=== PATIENT | female | born 1930 | race Caucasian/White ===

== ENCOUNTER → 2018-01-31 | Outpatient (CLI) | payer OTHER, MEDICAID ==
[~2018-01-31] MED LIST: ACYCLOVIR 400400 M1 PO; ADULT TUSS100 MG/5 M; ALDACTONE25 MG PO; AMBIEN 10 MG TA10 MG PO; AMBIEN 5 MG TABL5 M1; ANTACID ANTI-G355 ML PO; ANTIVERT12.5 MG PO; APAP500; APAP500 PO; ATIVAN0.5 M1 PO; ATIVAN0.5 MG; ATIVAN0.5 MG PO; AVINZA45 MG PO; AZULFIDINE500 M1 PO; B12INJ PO; BACITRACIN 500U30 G1 TOP; BENGAY GREASELE57 GM TP; BENGAY113 GM TP; CARAFATE 1 GM TA1 G1 GT; CELEBREX 200 M200 MG PO; CELEXA 20 MG TA20 M1; CEPACOL SORE T1 EAC7; CEPACOL SORE T1 EAC7 PO; CHONDROITIN SU1 EACH PO; CLARITIN10 MG PO; COMPAZINE10 M1; COMPAZINE10 M2 PO; COMPAZINE10 MG PO; COZAAR 50 MG TA50 M1; COZAAR 50 MG TA50 M2 PO; CRANBERRY500 M1 PO; CRANBERRY500 M3 PO; DIOVAN40 MG PO; DOXYCYCLINE 10100 M1 PO; ESTRACE VAGINAL CREA; ESTRACE1 TUBE VAG; ESTRADIOL 1 MG T1 M1 PO; FISH OIL 1,001000 M2 PO; FLOMAX0.4 MG PO; FOLIC ACID 1 MG1 MG; FOLIC ACID1 MG PO; FOSAMAX 70 MG T70 M1; FOSAMAX 70 MG T70 MG PO; FOSAMAX40 MG PO; FUROSEMIDE; FUROSEMIDE 20 M20 M1; FUROSEMIDE 40 M40 M1; FUROSEMIDE 40 M40 M1 PO; GABAPENTIN 100100 MG PO; GABAPENTIN100 MG PO; GABAPENTIN250 MG/5 M PO; GLUCOSAMINE &1 EAC1; HUMIRA10 MG/0.2 SQ; HUMIRA40 MG/0.1 SQ; HUMIRA40 MG/0.1 SUBQ; HYDROXYCHLOROQ200 M1 PO; IMODIUM A-D PO; K-DUR 20 MEQ T20 MEQ PO; K-DUR10 ME1; K-TAB ER20 MEQ PO; KEFLEX500 MG PO; LASIX 20 MG TAB20 MG PO; LASIX 40 MG TAB40 M2 PO; LEVAQUIN 500 M500 M2 PO; LEVAQUIN 750 M750 MG PO; LEXAPRO 10 MG T10 M1 PO; LEXAPRO 10 MG T10 M2 PO; LIDODERM 5%1 PATCH; LIPITOR 20 MG T20 M1 PO; LIPITOR20 MG; LIPITOR40 MG PO; LOPERAMIDE 2 MG2 M1 PO; LORTABELXR PO; MACROBID 100 M100 M1 PO; MAPAP500 M1 PO; MECLIZINE HCL12.5 MG; MELATONIN3 MG; METHOTREXATE 22.5 M1; METHOTREXATE 22.5 M1 PO; METHOTREXATE 22.5 MG; METHOTREXATE 22.5 MG GT; MILK OF MA2400 MG/10 PO; MIRALAX17 GM PO; MIRALAX255 GM; MOBIC15 MG; MOM; MORPHINE; MORPHINE SULFAT15 M1; MORPHINE SULFAT15 MG PO; MS CONTIN 30 MG30 M1 GT; MS CONTIN 30 MG30 M1 PO; MS CONTIN 60 MG60 M1 PO; MUCINEX TA600 MG/TA2 PO; MUCINEX600 MG; MUCINEX600 MG PO; MYAMBUTOL 400400 M1; MYLANTA PO; NEXIUM40 MG PO; ONE DAILY MULT1 EAC2; OXYCODONE HCL 55 MG PO; OXYCONTIN10 M1 PO; OYSTER SHELL 51 EACH PO; OYSTER SHELL C1 EA12; OYSTER SHELL C1 EAC4 PO; PREDNISONE; PREDNISONE 10 M10 M1; PREDNISONE 10 M10 M1 PO; PREDNISONE 5 MG5 M1 PO; PREDNISONE50 MG PO; PRILOSEC40 MG PO; REMERON15 M1; REMERON15 MG PO; ROBAFEN100 MG/5 M PO; ROXICODONE15 M1; ROXICODONE15 M1 PO; ROXICODONE15 MG PO; SANTYL OINTMENT30 G1; SENEXON-S TABL1 EACH PO; SENNA; SENNA PLUS; SENNA PLUS TAB1 EACH PO; SENOKOT-S1 TA1 PO; SILTUSSIN DM C118 ML PO; SIMETHICON CHEW80 MG PO; SULFASALAZINE500 M5; SULFASALAZINE500 M5 PO; THERA M PLUS T1 EACH PO; THEREMS-M1 EACH PO; UNICOMPLEX M TA1 TA1 PO; VISINE15 ML; VISINE15 ML INTRAOCULR; VITAMIN B-12500 MCG PO; VITAMINC500; VITAMINC500 PO
== END ==
LOC: M.RAD 13:25
DX: M85.89 Other specified disorders of bone density and structure, multiple sites (principal); Z78.0 Asymptomatic menopausal state

== ENCOUNTER → 2018-07-19 | Day surgery (SDC) | payer OTHER, MEDICAID ==
[~2018-07-19] MED LIST changes: +OMEPRAZOLE 20 M20 M1 PO; +ONDANSETRON HCL4 M2 PO; +ZANTAC 150MG T150 MG PO
[2018-07-19 10:37] LABS: HEMATOCRIT 35.5 % (37.0-47.0); HEMOGLOBIN 11.8 gm/dL (12.0-15.0); MCH 34.2 pg (26.0-34.0); MCHC 33.2 g/dL (28.0-37.0); RBC 3.44 mil/uL (4.20-5.00); RDW-CV 12.8 % (10.5-14.5); WBC 5.7 thou/uL (4.0-11.0)
[2018-07-19 10:50] LABS: ALBUMIN 3.9 g/dL (3.4-5.0); CALCIUM 9.5 mg/dL (8.5-10.1); POTASSIUM 4.3 mmol/L (3.5-5.1); TOTAL BILIRUBIN 0.3 mg/dL (<0.1-1.0)
--- NOTE | 2018-07-19 18:25 | EKG ---
[place] [address] ELECTROCARDIOGRAM REPORT Name: POWERSVLAD Room: [facility]#: [id number] Admission: 07/19/18 Attend Phys: Grady Capone DO Discharge: Date of : 34 Report #: [id number] THIS REPORT FOR: //name// [facility] Test Date: 2018-07-19 Test Time: 10:46:35 Pat Name: VLAD POWERS Department: Room: Gender: Elevator Repairer: : 1930 Requested By: Grady Capone Order Number: [id number] Enrique MD: Mitchell Abrams Measurements Intervals [place] Rate: 63 P: 38 TN: 146 QRS: 3 QRSD: 89 T: 4 QT: 406 QTc: 416 Interpretive Statements Sinus rhythm Abnormal R-wave progression, early transition Compared to ECG 10/03/2016 12:22:59 No significant changes Electronically Signed On 07-19-2018 18:25:11 CDT by Mitchell Abrams [email or web address] <ELECTRONICALLY SIGNED> By: Mitchell Abrams MD, [facility] 07/19/18 1825 1046 45 Mitchell Abrams MD, FAC /EPI
== END | disposition home or self-care (01) ==
LOC: M.SUR 08:28
PROVIDERS: Internal Medicine Gastroenterology
DX: K22.0 Achalasia of cardia (principal); K20.9 Esophagitis, unspecified; K44.9 Diaphragmatic hernia without obstruction or gangrene; Q39.9 Congenital malformation of esophagus, unspecified; M06.9 Rheumatoid arthritis, unspecified; G89.29 Other chronic pain; Z85.820 Personal history of malignant melanoma of skin; Z90.710 Acquired absence of both cervix and uterus; Z79.891 Long term (current) use of opiate analgesic; Z79.899 Other long term (current) drug therapy; Z88.2 Allergy status to sulfonamides; Z87.01 Personal history of pneumonia (recurrent); Z87.440 Personal history of urinary (tract) infections; Z98.890 Other specified postprocedural states

== ENCOUNTER → 2019-01-23 | Day surgery (SDC) | payer OTHER, MEDICAID ==
[~2019-01-23] MED LIST changes: +VITAMIN C500 M2 PO; +VOLTAREN GEL 1100 G1 TOP
--- NOTE | ~2019-01-23 | PROC ---
[address] [place] [address] PROCEDURE REPORT Name: VLAD POWERS Room: [facility]#: [id number] Admission: 01/23/19 Attend Phys: Grady Capone DO Discharge: Date of : 34 Report #: [id number] THIS REPORT FOR: //name// For Gi report, please see the Provation report in Perceptive 7 content. By: 1456Medical Records Staff [facility] /JOSUE
[2019-01-23 10:16] LABS: HEMATOCRIT 37.3 % (37.0-47.0); HEMOGLOBIN 12.3 gm/dL (12.0-15.0); MCH 33.4 pg (26.0-34.0); MCV 101.2 fL (80.0-100.0); MPV 9.2 fl. (7.2-11.1); RBC 3.68 mil/uL (4.20-5.00); RDW-CV 13.5 % (10.5-14.5); WBC 5.5 thou/uL (4.0-11.0)
[2019-01-23 10:27] LABS: CALCIUM 9.8 mg/dL (8.5-10.1)
[2019-01-23 10:32] LABS: ALBUMIN 4.1 g/dL (3.4-5.0); TOTAL BILIRUBIN 0.4 mg/dL (<0.1-1.0); TOTAL PROTEIN 7.2 g/dL (6.4-8.2)
== END | disposition home or self-care (01) ==
LOC: M.SUR 09:28
PROVIDERS: Internal Medicine Gastroenterology
DX: R13.14 Dysphagia, pharyngoesophageal phase (principal); K22.0 Achalasia of cardia; K22.8 Other specified diseases of esophagus; K44.9 Diaphragmatic hernia without obstruction or gangrene; K21.9 Gastro-esophageal reflux disease without esophagitis; E78.00 Pure hypercholesterolemia, unspecified; F41.9 Anxiety disorder, unspecified; F32.9 Major depressive disorder, single episode, unspecified; M81.0 Age-related osteoporosis without current pathological fracture; G62.9 Polyneuropathy, unspecified; Z88.2 Allergy status to sulfonamides; Z79.899 Other long term (current) drug therapy; Z98.890 Other specified postprocedural states

== ENCOUNTER → 2019-12-03 | Day surgery (SDC) | payer OTHER, MEDICAID ==
[2019-12-03 10:00] LABS: ABSOLUTE EOSINOPHILS 0.1 thou/uL (0.0-0.7); ABSOLUTE MONOCYTES 0.4 thou/uL (0.0-1.2); ABSOLUTE NEUTROPHILS 3.2 thou/uL (1.6-8.1); BASOPHILS 0.8 %; EOSINOPHILS 2.1 %; HEMATOCRIT 33.8 % (37.0-47.0); HEMOGLOBIN 11.4 gm/dL (12.0-15.0); LYMPHOCYTES 20.5 %; MCH 34.5 pg (26.0-34.0); MCHC 33.6 g/dL (28.0-37.0); MCV 102.5 fL (80.0-100.0); MONOCYTES 8.9 %; MPV 9.7 fl. (7.2-11.1); NUCLEATED RBCS 0 /100WBC; PLATELET COUNT* 151 thou/uL (150-400); POLYS 67.7 %; WBC 4.7 thou/uL (4.0-11.0)
[2019-12-03 10:30] LABS: CALCIUM 8.6 mg/dL (8.5-10.1); POTASSIUM 4.4 mmol/L (3.5-5.1)
--- NOTE | 2019-12-03 11:41 | EKG ---
[place] [address] ELECTROCARDIOGRAM REPORT Name: VLAD POWERS Room: [facility]#: [id number] Admission: 12/03/19 Attend Phys: Grady Capone, Discharge: Date of : 34 Date of Service: 12/03/19 0929 Report #: [id number] THIS REPORT FOR: //name// [facility] Test Date: 2019-12-03 Test Time: 09:29:56 Pat Name: VLAD POWERS Department: Room: Gender: F Crm Administrator: : [id number] Requested By: Grady Capone Order Number: [id number] Enrique MD: Mitchell Abrams Measurements Intervals [place] Rate: 58 P: 50 WI: 139 QRS: 9 QRSD: 94 T: 28 QT: 447 QTc: 440 Interpretive Statements Sinus rhythm Compared to ECG 07/19/2018 10:46:35 No significant changes Electronically Signed On 12-03-2019 11:40:51 CDT by Mitchell Abrams [email or web address] <ELECTRONICALLY SIGNED> By: Mitchell Abrams MD, [facility] 12/03/19 1140 0929 Mitchell Abrams MD, [facility] /EPI
== END | disposition home or self-care (01) ==
LOC: M.SUR 09:04 → EDSTATUS 13:21 → M.SUR 13:26
PROVIDERS: ATTEND Internal Medicine Gastroenterology
DX: K22.0 Achalasia of cardia (principal); R13.10 Dysphagia, unspecified; K44.9 Diaphragmatic hernia without obstruction or gangrene; Q39.9 Congenital malformation of esophagus, unspecified; Z79.899 Other long term (current) drug therapy; Z88.2 Allergy status to sulfonamides; Z88.8 Allergy status to other drugs, medicaments and biological substances; Z98.890 Other specified postprocedural states

== ENCOUNTER 2020-02-07 11:38 | Inpatient (IN) | payer OTHER, MEDICAID ==
[~2020-02-07] VITALS: Ht 162.6 cm; Wt 57.0 kg
[~2020-02-07 11:38] MED LIST changes: -ALDACTONE25 MG PO; +SPIRONOLACTONE25 M1 PO
[2020-02-07 11:46] VITALS: BP 148/96
[2020-02-07] MEDS ORDERED: FAMOTIDINE 20 M20 MG PO (12:01)
[2020-02-07] MEDS ORDERED: MS CONTIN60 MG PO (12:04)
[2020-02-07] MEDS ORDERED: DECADRON6 MG PO (12:07)
[2020-02-07 12:15] LABS: BE 7.2 mmol/L (-2 to +3); PCO2 39.2 mmHg (35.0-45.0); pH 7.511 (7.340-7.450)
[2020-02-07 12:16] LABS: PO2 53.3 mmHg (75.0-100.0)
[2020-02-07 12:26] LABS: HEMATOCRIT 38.5 % (37.0-47.0); HEMOGLOBIN 12.6 gm/dL (12.0-15.0); MCHC 32.7 g/dL (28.0-37.0); MCV 100.9 fL (80.0-100.0); MPV 9.9 fl. (7.2-11.1); NUCLEATED RBCS 0 /100WBC; PLATELET COUNT* 145 thou/uL (150-400); RBC 3.81 mil/uL (4.20-5.00); RDW-CV 13.4 % (10.5-14.5); WBC 8.6 thou/uL (4.0-11.0)
[2020-02-07 12:39] LABS: APTT 27.2 Seconds (25.0-31.3); PROTIME 10.5 Seconds (9.20-11.50)
[2020-02-07 12:46] LABS: INFLUENZA A ANTIGEN Negative (Negative); INFLUENZA B ANTIGEN Negative (Negative)
[2020-02-07 12:53] LABS: ABSOLUTE LYMPHOCYTES 0.7 thou/uL (0.8-5.3); ABSOLUTE MONOCYTES 0.3 thou/uL (0.0-1.2); ABSOLUTE NEUTROPHILS 7.6 thou/uL (1.6-8.1); PLATELET ESTIMATE ADEQUATE
[2020-02-07 13:01] LABS: CALCIUM 9.8 mg/dL (8.5-10.1); CREATININE 1.2 mg/dL (0.6-1.3); POTASSIUM 3.9 mmol/L (3.5-5.1)
[2020-02-07 13:12] LABS: ALBUMIN 3.4 g/dL (3.4-5.0); TOTAL BILIRUBIN 0.5 mg/dL (<0.1-1.0)
[2020-02-07 15:16] LABS: URINE BILIRUBIN NEGATIVE (Negative); URINE BLOOD NEGATIVE (Negative); URINE CLARITY CLEAR; URINE COLOR YELLOW; URINE GLUCOSE-RANDOM NEGATIVE (Negative); URINE KETONES NEGATIVE (Negative); URINE LEUKOCYTES-REFLEX NEGATIVE (Negative); URINE NITRITE-REFLEX NEGATIVE (Negative); URINE PROTEIN NEGATIVE (Negative); URINE UROBILINOGEN 0.2 E.U./dl (0.2-1.0)
--- NOTE | 2020-02-07 17:46 | EKG ---
[place] [address] ELECTROCARDIOGRAM REPORT Name: VLAD POWERS Room: [place] [address] ADM IN ..#: [id number] Admission: 02/07/20 Attend Phys: Tevin Mercedes, Discharge: Date of : 34 Date of Service: 02/07/20 1157 Report #: [id number] THIS REPORT FOR: //name// [facility] ED Test Date: 2020-02-07 Test Time: 11:57:06 Pat Name: VLAD POWERS Department: Room: [facility] Gender: F Mutual Fund Sales Agent: : 1930 Requested By: Ciaran Khan Order Number: [id number] MD: Mitchell Abrams Measurements Intervals [place] Rate: 74 P: 0 SD: 55 QRS: 3 QRSD: 131 T: 19 QT: 400 QTc: 444 Interpretive Statements Sinus rhythm Artifact in lead(s) I,aVF,V1,V2,V3,V4,V5,V6 Compared to ECG 12/03/2019 09:29:56 Artifact noted Electronically Signed On 02-07-2020 17:45:51 CDT by Mitchell Abrams [email or web address] <ELECTRONICALLY SIGNED> By: Mitchell Abrams MD, FACC 02/07/20 1745 1157 1157 Mitchell Abrams MD, FACC /EPI
[2020-02-07 18:08] VITALS: BP 121/58
[2020-02-07 18:10] VITALS: BP 109/41
--- NOTE | 2020-02-07 19:01 | NUR ---
PT ADMITTED TO ROOM 222 AT APPROX 1810, PT AOX4, NO C/O PAIN OR SHORTNESS OF BREATH. PT SATTING UPPER 80'S ON 4L, SWITCHED TO HIGH FLOW CANULA AND BUMPED UP TO 8L, SAT 90%. PT BOTTOM A LITTLE RED, MADE A Q2T, NO OPEN SKIN. FLUIDS AND REMDESIVIR RUNNING, VS CHARTED, MEDS PER MAR, HOURLY ROUNDING OBSERVED, FALL PRECAUTIONS IN PLACE, CALL LIGHT W/IN REACH, PT ORIENTED TO ROOM AND CALL LIGHT. PT STATES SHE GETS UP W/ WALKER AT [facility], WHERE SHE'S FROM, BUT I DID NOT GET PT UP THIS SHIFT.
[2020-02-07 20:00] VITALS: BP 125/59
[2020-02-08] VITALS (7 sets, daily range): BP systolic 99–123; BP diastolic 38–68
[2020-02-08 05:47] LABS: ABSOLUTE LYMPHOCYTES 0.3 thou/uL (0.8-5.3); ABSOLUTE MONOCYTES 0.1 thou/uL (0.0-1.2); ABSOLUTE NEUTROPHILS 5.3 thou/uL (1.6-8.1); BASOPHILS 0.1 %; HEMATOCRIT 36.5 % (37.0-47.0); HEMOGLOBIN 11.8 gm/dL (12.0-15.0); LYMPHOCYTES 4.7 %; MCH 32.8 pg (26.0-34.0); MCHC 32.3 g/dL (28.0-37.0); MCV 101.7 fL (80.0-100.0); MONOCYTES 1.8 %; MPV 9.9 fl. (7.2-11.1); NUCLEATED RBCS 0 /100WBC; PLATELET COUNT* 127 thou/uL (150-400); POLYS 93.4 %; RBC 3.59 mil/uL (4.20-5.00); RDW-CV 13.1 % (10.5-14.5); WBC 5.7 thou/uL (4.0-11.0)
[2020-02-08 05:55] LABS: CALCIUM 9.1 mg/dL (8.5-10.1); POTASSIUM 3.4 mmol/L (3.5-5.1)
--- NOTE | 2020-02-08 18:54 | NUR ---
ASSUMED PT CARE AT 729, PT AOX4 BUT FORGETFUL, NO C/O PAIN BUT SATTING 80'S ON 6L, ENDED UP HAVING TO PUT PT ON 15L NONREBREATHER TO ACHIEVE 90% SAT. RT WORKED W/ PT TODAY, NOTIFIED ABOUT INCREASED OXYGEN NEEDS. PT BEING TURNED Q2H. CONVALESCENT PLASMA ORDERED FOR PT AND GIVEN TODAY, PT TOLERATED WELL. PT GOAL IS TO KEEP SATS ABOVE 90% AND REMAIN FREE FROM SKIN BREAKDOWN. PT CONTINUES TO BE IN ISO FOR COVID. AM ASSESSMENT CHARTED, MEDS PER MAR, HOURLY ROUNDING OBSERVED, FALL PRECAUTIONS IN PLACE, CALL LIGHT W/IN REACH.
[2020-02-09 00:26] VITALS: BP 118/53
[2020-02-09 04:00] VITALS: BP 124/52
[2020-02-09 05:29] LABS: ABSOLUTE LYMPHOCYTES 0.3 thou/uL (0.8-5.3); ABSOLUTE MONOCYTES 0.2 thou/uL (0.0-1.2); BASOPHILS 0.1 %; HEMOGLOBIN 11.1 gm/dL (12.0-15.0); LYMPHOCYTES 4.3 %; MCH 33.1 pg (26.0-34.0); MCHC 32.5 g/dL (28.0-37.0); MCV 101.7 fL (80.0-100.0); MONOCYTES 2.7 %; MPV 9.8 fl. (7.2-11.1); NUCLEATED RBCS 0 /100WBC; PLATELET COUNT* 137 thou/uL (150-400); POLYS 92.9 %; RBC 3.34 mil/uL (4.20-5.00); RDW-CV 13.3 % (10.5-14.5); WBC 7.6 thou/uL (4.0-11.0)
[2020-02-09 06:01] LABS: ALBUMIN 2.3 g/dL (3.4-5.0); CALCIUM 7.8 mg/dL (8.5-10.1); CREATININE 0.9 mg/dL (0.6-1.3); POTASSIUM 3.6 mmol/L (3.5-5.1); TOTAL BILIRUBIN 0.3 mg/dL (<0.1-1.0); TOTAL PROTEIN 6.2 g/dL (6.4-8.2)
[2020-02-09 08:00] VITALS: BP 100/37
[2020-02-09 12:00] VITALS: BP 108/65
[2020-02-09 17:28] VITALS: BP 103/46; BP 112/42
--- NOTE | 2020-02-09 19:32 | NUR ---
ASSUMED PT CARE AT 0730, PT AOX4 BUT FORGETFUL, NO C/O PAIN OR SHORTNESS OF BREATH. PT HAD TROUBLES KEEPING OXYGEN SATS UP TODAY, PT SATTING 87-90% ON 15L NONREBREATHER, NOTIFIED AND ORDERS RECEIVED FOR IV LASIX. PT DID BETTER DURING DAY BUT AROUND DINNER, PT WAS BACK TO 80'S, DR NOTIFIED AND RT CALLED, PT DOESN'T TOLERATE HEATED HIGH FLOW SO RT PUT 15L HIGH FLOW W/ 15L NONREBREATHER ON TOP OF IT, SAT 92-95%, STILL DOESN'T C/O SHORTNESS OF BREATH. ANOTHER DOSE OF IV LASIX ORDERED AND FLUIDS DC'D. PT GOT CONVOLESCENT PLASMA TODAY, TOLERATED WELL. PT GOAL IS TO KEEP SATS ABOVE 90% AND REMAIN FREE FROM SKIN BREAKDOWN. PT BEING TURNED Q2H, AM ASSESSMENT CHARTED, MEDS PER MAR, HOURLY ROUNDING OBSERVED, FALL PRECAUTIONS IN PLACE, CALL LIGHT W/IN REACH, PT IN ISO FOR COVID.
[2020-02-09 20:00] VITALS: BP 98/38
[2020-02-10] VITALS: BP 125/48
[2020-02-10 04:00] VITALS: BP 129/59; BP 137/66
[2020-02-10 05:19] LABS: ABSOLUTE LYMPHOCYTES 0.2 thou/uL (0.8-5.3); ABSOLUTE MONOCYTES 0.4 thou/uL (0.0-1.2); ABSOLUTE NEUTROPHILS 7.8 thou/uL (1.6-8.1); HEMATOCRIT 34.6 % (37.0-47.0); HEMOGLOBIN 11.2 gm/dL (12.0-15.0); LYMPHOCYTES 2.8 %; MCH 32.7 pg (26.0-34.0); MCHC 32.4 g/dL (28.0-37.0); MCV 100.7 fL (80.0-100.0); MONOCYTES 4.2 %; MPV 9.9 fl. (7.2-11.1); NUCLEATED RBCS 0 /100WBC; PLATELET COUNT* 154 thou/uL (150-400); RBC 3.43 mil/uL (4.20-5.00); RDW-CV 13.4 % (10.5-14.5); WBC 8.4 thou/uL (4.0-11.0)
[2020-02-10 05:59] LABS: PREALBUMIN 15.6 mg/dL (18.0-35.7)
[2020-02-10 06:31] LABS: ALBUMIN 2.4 g/dL (3.4-5.0); CALCIUM 8.1 mg/dL (8.5-10.1); POTASSIUM 3.3 mmol/L (3.5-5.1); TOTAL BILIRUBIN 0.3 mg/dL (<0.1-1.0); TOTAL PROTEIN 6.4 g/dL (6.4-8.2)
--- NOTE | 2020-02-10 07:20 | NUR ---
CHANGE IN SHIFT REPORT GIVEN PATIENT SEEN AT BEDSIDE, IN BED ASLEEP ASSUMED PATIENT CARE
[2020-02-10 08:00] VITALS: BP 112/44
--- NOTE | 2020-02-10 14:25 | NUR ---
CM CONTACTD PT'S SON TO GET HIS ASSISTANCE IN COMPLETING THE CM ASSESSMENT. PT'S SON CARLIE INFORMS THAT THE PT RESIDES AT [facility]. PT USES A WALKER FOR MOBILITY AND IS ABLE TO WALK HERSELF TO MEALS WITH REMINDERS. PLAN FOR PT TO RETURN TO [facility] AT D/C. CM SPOKE TO [facility] WITH [facility] ADMISSIONS AND SHE INFORMS THAT THE [facility] WILL ACCEPT THE PT AT D/C. NO RAPID COVID NEEDED AT D/C THE PT WILL RETURN TO THE COVID POSTITIVE UNIT. CM FAXED [facility] UPDATED CLINICAL INFO ON THE PT. CM WILL REMAIN AVAILABLE TO ASSIST AND FOLLOW NEEDED.
[2020-02-10 14:35] VITALS: BP 99/57
[2020-02-10 17:20] LABS: CALCIUM 8.6 mg/dL (8.5-10.1); CREATININE 1.2 mg/dL (0.6-1.3); POTASSIUM 3.4 mmol/L (3.5-5.1)
[2020-02-10 18:40] VITALS: BP 113/60
[2020-02-10 20:00] VITALS: BP 139/77
[2020-02-11] VITALS: BP 138/60
[2020-02-11 04:00] VITALS: BP 124/48
[2020-02-11 07:10] LABS: MCH 33.4 pg (26.0-34.0); MPV 9.6 fl. (7.2-11.1); NUCLEATED RBCS 0 /100WBC; WBC 7.9 thou/uL (4.0-11.0)
[2020-02-11 07:13] LABS: HEMATOCRIT 37.8 % (37.0-47.0); HEMOGLOBIN 12.1 gm/dL (12.0-15.0); MCHC 31.9 g/dL (28.0-37.0); MCV 104.9 fL (80.0-100.0); PLATELET COUNT* 114 thou/uL (150-400); RDW-CV 13.6 % (10.5-14.5)
[2020-02-11 07:24] LABS: ALBUMIN 2.4 g/dL (3.4-5.0); CALCIUM 8.6 mg/dL (8.5-10.1); MAGNESIUM 2.2 mg/dL (1.8-2.4); POTASSIUM 3.6 mmol/L (3.5-5.1); TOTAL BILIRUBIN 0.6 mg/dL (<0.1-1.0); TOTAL PROTEIN 6.5 g/dL (6.4-8.2)
[2020-02-11 07:57] LABS: PREALBUMIN 15.6 mg/dL (18.0-35.7)
[2020-02-11 08:00] VITALS: BP 119/56
[2020-02-11 08:32] LABS: ABSOLUTE LYMPHOCYTES 0.3 thou/uL (0.8-5.3); ABSOLUTE NEUTROPHILS 7.6 thou/uL (1.6-8.1); PLATELET ESTIMATE ADEQUATE
--- NOTE | 2020-02-11 12:36 | NUR ---
PRIMETIME ROUNDS: PT IS RED STATUS D/T CONTINOUS BIPAP NEEDS.
[2020-02-11 12:38] VITALS: BP 146/53
--- NOTE | 2020-02-11 15:47 | NUR ---
RIGHT BASILIC VESSEL ACCESED FOR 5 HUNGARIAN TRIPLE LUMEN PICC. LINE PRE-TRIMMED TO 37 CM AND ADVANCED TO THE ZERO JHON WITH NO RESISTANCE MET. UPPERA ARM CIRCUMFERENCE ABOVE INSERTION SITE= 9". SHERLOCK MAGNET AND 3CG CONFIRMATION OF TIP TERMINATION AT THE CAVOATRIAL JUNCTION APPRECIATED. GUIDEWIRE REMOVED, LINE FLUSHED AND ISNERTION SITE DRESED. REPORT GIVEN TO RENZO OVALLE.
[2020-02-11 15:56] LABS: BE 2.2 mmol/L (-2 to +3); PCO2 37.5 mmHg (35.0-45.0); PO2 62.5 mmHg (75.0-100.0); pH 7.458 (7.340-7.450)
[2020-02-11 16:00] VITALS: BP 120/53
--- NOTE | 2020-02-11 19:38 | NUR ---
PT O2 SAT 83% ON BIPAP AT INITIAL ASSESSMENT.O2 SAT IMPROVED T/O DAY. 93% AT 1600.SR ON MONITOR. PICC X3 PLACED TODAY IN REED. PT NPO AT THIS TIME,UNABLE TO TOLERATE ANY AMOUNT OF TIME OFF BIPAP. WCTM
[2020-02-11 20:00] VITALS: BP 127/77
[2020-02-12 00:49] VITALS: BP 118/59
[2020-02-12 04:36] VITALS: BP 138/64
[2020-02-12 08:00] VITALS: BP 148/78
--- NOTE | 2020-02-12 12:09 | NUR ---
Covid positive. On bipap, high L of o2. Plan back to LTC at dc, will not need a repeat covid test, Pt will admit to their covid unit. Anticipate dc in a few days.
[2020-02-12 12:16] VITALS: BP 109/45
[2020-02-12 15:16] LABS: ABSOLUTE BASOPHILS 0.1 thou/uL (0.0-0.2); ABSOLUTE LYMPHOCYTES 0.1 thou/uL (0.8-5.3); ABSOLUTE MONOCYTES 0.3 thou/uL (0.0-1.2); ABSOLUTE NEUTROPHILS 8.9 thou/uL (1.6-8.1); BASOPHILS 0.6 %; HEMATOCRIT 34.6 % (37.0-47.0); HEMOGLOBIN 11.5 gm/dL (12.0-15.0); LYMPHOCYTES 1.4 %; MCHC 33.2 g/dL (28.0-37.0); MPV 9.1 fl. (7.2-11.1); NUCLEATED RBCS 0 /100WBC; PLATELET COUNT* 158 thou/uL (150-400); RBC 3.48 mil/uL (4.20-5.00); RDW-CV 13.3 % (10.5-14.5); WBC 9.4 thou/uL (4.0-11.0)
[2020-02-12 15:20] LABS: MCV 99.5 fL (80.0-100.0)
[2020-02-12 16:00] VITALS: BP 121/52
[2020-02-12 16:18] LABS: CALCIUM 8.2 mg/dL (8.5-10.1); CREATININE 0.9 mg/dL (0.6-1.3); MAGNESIUM 2.5 mg/dL (1.8-2.4); POTASSIUM 3.7 mmol/L (3.5-5.1)
[2020-02-12 21:50] VITALS: BP 129/52
[2020-02-13] VITALS: BP 137/59
[2020-02-13 04:00] VITALS: BP 130/60
[2020-02-13 06:08] LABS: ABSOLUTE LYMPHOCYTES 0.2 thou/uL (0.8-5.3); ABSOLUTE MONOCYTES 0.4 thou/uL (0.0-1.2); ABSOLUTE NEUTROPHILS 9.3 thou/uL (1.6-8.1); HEMATOCRIT 33.5 % (37.0-47.0); LYMPHOCYTES 2.1 %; MCHC 32.7 g/dL (28.0-37.0); MCV 100.8 fL (80.0-100.0); MONOCYTES 4.1 %; MPV 10.3 fl. (7.2-11.1); NUCLEATED RBCS 0 /100WBC; PLATELET COUNT* 139 thou/uL (150-400); POLYS 93.8 %; RBC 3.32 mil/uL (4.20-5.00); RDW-CV 13.3 % (10.5-14.5); WBC 9.9 thou/uL (4.0-11.0)
[2020-02-13 06:27] LABS: ALBUMIN 2.1 g/dL (3.4-5.0); CALCIUM 8.4 mg/dL (8.5-10.1); CREATININE 0.9 mg/dL (0.6-1.3); POTASSIUM 3.5 mmol/L (3.5-5.1); TOTAL BILIRUBIN 0.4 mg/dL (<0.1-1.0); TOTAL PROTEIN 5.7 g/dL (6.4-8.2)
--- NOTE | 2020-02-13 07:14 | NUR ---
ASSUMED PT'S CARE @ 1900. PT ALERT AND ORIENTED. VSS ON BIPAP. COVID +. MEDS GIVEN CRUSHED IN APPLESAUCE. Q2 TURN. OCCASSIONAL MOUTH CARE. OFFERED ENSURE AND WATER INTERVALLY. JIMENEZ FOR VOIDING. ISOLATION PRECAUTION IN PLACE. WILL CONTINUE TO MONITOR.
[2020-02-13 07:30] VITALS: BP 121/56
--- NOTE | 2020-02-13 11:21 | NUR ---
Covid positive. Bipap dependent at this time.
[2020-02-13 12:00] VITALS: BP 116/70
[2020-02-13 13:57] VITALS: BP 116/78
[2020-02-13 18:40] VITALS: BP 136/49
[2020-02-14 00:24] VITALS: BP 141/45
--- NOTE | 2020-02-14 03:08 | NUR ---
ASSUMED CARE OF PT AT 1900. PT IS ALERT BUT CANNOT TELL ME WHERE SHE IS OR THE MONTH. VSS. ARLENE. NO COMPLAINTS OF PAIN. PT REMAINS ON HIGH FLOW NASAL CANNULA AT 45 LITERS OF O2. PT SPO2 REMAINS ABOVE 90. PT IS IN SINUS RYTHM ON THE TELEMETRY. PT IS RESTING COMFORTABLY IN BED. RESPIRATIONS ARE EVEN AND NONLABORED. WILL CONTINUE TO MONITOR PT.
[2020-02-14 04:39] VITALS: BP 132/79
[2020-02-14 06:15] LABS: ABSOLUTE LYMPHOCYTES 0.2 thou/uL (0.8-5.3); ABSOLUTE MONOCYTES 0.4 thou/uL (0.0-1.2); ABSOLUTE NEUTROPHILS 10.8 thou/uL (1.6-8.1); BASOPHILS 0.4 %; HEMATOCRIT 34.3 % (37.0-47.0); HEMOGLOBIN 11.1 gm/dL (12.0-15.0); LYMPHOCYTES 2.2 %; MCH 32.5 pg (26.0-34.0); MCHC 32.5 g/dL (28.0-37.0); MONOCYTES 3.5 %; MPV 10.4 fl. (7.2-11.1); NUCLEATED RBCS 0 /100WBC; PLATELET COUNT* 159 thou/uL (150-400); POLYS 93.9 %; RBC 3.43 mil/uL (4.20-5.00); RDW-CV 13.4 % (10.5-14.5); WBC 11.5 thou/uL (4.0-11.0)
[2020-02-14 06:26] LABS: PREALBUMIN 14.9 mg/dL (18.0-35.7)
[2020-02-14 06:30] LABS: ALBUMIN 1.9 g/dL (3.4-5.0); CALCIUM 8.1 mg/dL (8.5-10.1); CREATININE 0.7 mg/dL (0.6-1.3); TOTAL BILIRUBIN 0.5 mg/dL (<0.1-1.0); TOTAL PROTEIN 5.4 g/dL (6.4-8.2)
[2020-02-14 09:48] VITALS: BP 141/60
--- NOTE | 2020-02-14 10:50 | NUR ---
ASSUMED CARE OF PT THIS AM AROUND 714- TRANSPORT NURSE IN PLACE ORDERED, TRACING SR- UPON ASSESSMENT PT NOTED TO BE RESTING IN BED, HEATED LYNETTE FLOW IN PLACE AT 45L, O2 SAT 88-90%- DYSPNEA NOTED ON EXERTION- VSS- ABD SOFT/ROUND/NON-TENDER, BS X4 QUADS- LAST BM UNKNOWN, SCHEDULED STOOL SOFTNER GIVEN THIS AM PRESCRIBED- RUE TRIPLE LUMED PICC NOTED C/D/I- SET UP ASSIST REQURED WITH MEALS, POOR PO INTAKE NOTED- ISOLATION IN PLACE INDICATED R/T COVID- BS MONITORED ORDERED WITH SSI PRESCRIBED- PT DENIES ANY C/O PAIN/DISCOMFORT AT THIS TIME- CALL LIGHT AND PERSONAL BELONGINGS WITH IN REACH- ALL NEEDS MET AT THIS TIME-WCTM
--- NOTE | 2020-02-14 11:15 | NUR ---
Pt remains on bipap and high o2. CM updated Yesy at [facility], they are able to accept Pt back covid positive, do not require a repeat covid test. Anticipate dc in a few more days. Faxed updated clinicals.
[2020-02-14 12:00] VITALS: BP 118/56
[2020-02-14 16:30] VITALS: BP 134/66
[2020-02-14 20:00] VITALS: BP 134/57
--- NOTE | 2020-02-14 20:00 | NUR ---
RECEIVED REPORT AND ASSUMED CARE OF PT, ASSESSMENT COMPLETED. PT DYSPNIC, ON 45% HEATED HIFLOW CANNULA. CONT PULSE OX SHOWING 84-86%. HOB ELEVATED. TELEMETRY ON SHOWING SR. IN ISOLATION FOR COVID+. WILL CONT TO MONITOR AND ASSIST NEEDED.
[2020-02-15] VITALS: BP 142/63
[2020-02-15 04:00] VITALS: BP 152/63
--- NOTE | 2020-02-15 06:46 | NUR ---
SLEPT WELL TONIGHT. ASSISTED WITH REPOSITIONING. TOLERATING BIPAP ALL NIGHT WITH FIO2 100%. DESATS EASILY WHEN REMOVED FOR DRINK. PICC DECLOTTED X3 LINES WITH CATHFLO AND EFFECTIVE. REMAINS IN ISOLATION. TELEMETRY CONT TO SHOW SR. NO CHANGE IN ASSESSMENT. HS GOALS OF REST AND SAFETY ACHIEVED. HOURLY ROUNDING OBSERVED.
[2020-02-15 07:09] LABS: CALCIUM 8.2 mg/dL (8.5-10.1); CREATININE 0.9 mg/dL (0.6-1.3); HEMATOCRIT 36.1 % (37.0-47.0); HEMOGLOBIN 11.7 gm/dL (12.0-15.0); MCH 32.2 pg (26.0-34.0); MCHC 32.3 g/dL (28.0-37.0); MCV 99.5 fL (80.0-100.0); MPV 11.2 fl. (7.2-11.1); NUCLEATED RBCS 0 /100WBC; PLATELET COUNT* 135 thou/uL (150-400); POTASSIUM 3.7 mmol/L (3.5-5.1); RBC 3.63 mil/uL (4.20-5.00); RDW-CV 13.6 % (10.5-14.5); WBC 10.6 thou/uL (4.0-11.0)
[2020-02-15 08:26] LABS: ABSOLUTE MONOCYTES 0.1 thou/uL (0.0-1.2); ABSOLUTE NEUTROPHILS 10.5 thou/uL (1.6-8.1); PLATELET ESTIMATE DECREASED
[2020-02-15 10:07] VITALS: BP 115/52
[2020-02-15 12:34] VITALS: BP 131/60
[2020-02-15 16:21] VITALS: BP 113/60
[2020-02-16] VITALS: BP 149/64
[2020-02-16 04:00] VITALS: BP 156/77
--- NOTE | 2020-02-16 04:57 | NUR ---
PT CARE ASSUMED AT 1930. SAT MAINTAINED IN BIPAP. PT IS TEARFUL THIS AM, PT CONSOLED. PT ON CONTINUOS PULSE OX. DESATS EASILY WHEN BIPAP REMOVED FOR MEDICATIONS. CALL LIGHT WITHIN REACH AND BED IN LOW POSITION. HOURLY ROUNDING DONE FOR PT SAFETY.
[2020-02-16 08:00] VITALS: BP 107/48
[2020-02-16 13:04] VITALS: BP 129/47
[2020-02-16 16:00] VITALS: BP 120/51
[2020-02-16 20:00] VITALS: BP 148/65
[2020-02-17] VITALS: BP 152/70
[2020-02-17 04:00] VITALS: BP 137/76
[2020-02-17 05:55] LABS: ABSOLUTE BASOPHILS 0.1 thou/uL (0.0-0.2); ABSOLUTE LYMPHOCYTES 0.3 thou/uL (0.8-5.3); ABSOLUTE MONOCYTES 0.3 thou/uL (0.0-1.2); ABSOLUTE NEUTROPHILS 9.5 thou/uL (1.6-8.1); BASOPHILS 0.7 %; HEMATOCRIT 32.4 % (37.0-47.0); HEMOGLOBIN 10.8 gm/dL (12.0-15.0); MCH 33.1 pg (26.0-34.0); MCHC 33.2 g/dL (28.0-37.0); MCV 99.6 fL (80.0-100.0); MONOCYTES 2.9 %; NUCLEATED RBCS 0 /100WBC; PLATELET COUNT* 113 thou/uL (150-400); POLYS 93.4 %; RBC 3.26 mil/uL (4.20-5.00); RDW-CV 13.8 % (10.5-14.5); WBC 10.2 thou/uL (4.0-11.0)
[2020-02-17 06:33] LABS: ALBUMIN 2.2 g/dL (3.4-5.0); CALCIUM 8.5 mg/dL (8.5-10.1); CREATININE 0.9 mg/dL (0.6-1.3); MAGNESIUM 2.4 mg/dL (1.8-2.4); POTASSIUM 3.8 mmol/L (3.5-5.1); TOTAL BILIRUBIN 0.6 mg/dL (<0.1-1.0); TOTAL PROTEIN 5.7 g/dL (6.4-8.2)
[2020-02-17 08:30] VITALS: BP 133/56
--- NOTE | 2020-02-17 11:04 | NUR ---
Remains on bipap or HF NC. Restart Remdisivir.
[2020-02-17 12:00] VITALS: BP 151/60
[2020-02-17 16:00] VITALS: BP 147/63
--- NOTE | 2020-02-17 20:30 | NUR ---
I ASSUMED CARE OF THE PATIENT AT 0700. SHE IS ALERT AND ORIENTED X3 AND IS ON BEDREST. BED IS IN THE LOW LOCKED POSITION AND CALL LIGHT IS IN REACH. HOURLY ROUNDING IS COMPLETED AND PATIENT NEEDS ARE MET. PAIN IS MANAGED WITH SCHEDULED MEDS. ISOLATION IS MAINTAINED FOR COVID AND REMDESIVIR IS RESTARTED. JIMENEZ IS IN PLACE. PATIENT IS BETWEEN BIPAP AT 100% AND HIGH FLOW HEATED AT 50%. PATIENT IS NOT PROGRESSING TOWARD GOALS, PHYSICIAN NOTIFIED. WILL CONTINUE TO MONITOR.
[2020-02-18] VITALS: BP 146/68
[2020-02-18 08:00] VITALS: BP 148/68
[2020-02-18 09:46] LABS: ABSOLUTE LYMPHOCYTES 0.2 thou/uL (0.8-5.3); ABSOLUTE MONOCYTES 0.5 thou/uL (0.0-1.2); ABSOLUTE NEUTROPHILS 11.5 thou/uL (1.6-8.1); BASOPHILS 0.3 %; HEMATOCRIT 33.1 % (37.0-47.0); HEMOGLOBIN 10.8 gm/dL (12.0-15.0); LYMPHOCYTES 1.7 %; MCH 32.7 pg (26.0-34.0); MCHC 32.6 g/dL (28.0-37.0); MCV 100.1 fL (80.0-100.0); MPV 10.9 fl. (7.2-11.1); NUCLEATED RBCS 0 /100WBC; PLATELET COUNT* 103 thou/uL (150-400); RDW-CV 14.3 % (10.5-14.5); WBC 12.3 thou/uL (4.0-11.0)
[2020-02-18 10:04] LABS: ALBUMIN 2.3 g/dL (3.4-5.0); CREATININE 0.8 mg/dL (0.6-1.3); MAGNESIUM 2.1 mg/dL (1.8-2.4); POTASSIUM 3.9 mmol/L (3.5-5.1); TOTAL BILIRUBIN 0.6 mg/dL (<0.1-1.0); TOTAL PROTEIN 5.5 g/dL (6.4-8.2)
--- NOTE | 2020-02-18 10:59 | NUR ---
Pt remains on bipap. On enhanced precautions. CM updated [facility] of POC. Anticipate a few more days in the hospital.
[2020-02-18 14:00] VITALS: BP 150/76
[2020-02-18 16:43] VITALS: BP 153/66
[2020-02-18 18:48] LABS: CALCIUM 8.2 mg/dL (8.5-10.1); CREATININE 0.7 mg/dL (0.6-1.3)
[2020-02-18 20:00] VITALS: BP 148/64
--- NOTE | 2020-02-18 20:39 | NUR ---
CARE PROVIDED FROM 0700 UNTIL 1944. PT REMAINS IN ENHANCED COVID ISOLATION. PT RESPONDS TO VERBAL STIMULI. RT ASSISTING WITH BIPAP/HIGH FLOW O2 USAGE. PT ABLE TO BE OFF BIPAP THIS AM BUT PLACED BACK ON DURING PERIODS OF SLEEP. PER RT REQUEST ORDER OBTAINED FOR IV ANTIANXIETY MEDICATION ON PRN BASIS. PT UNABLE TO TAKE ORAL MEDICATIONS THIS AFTERNOON RELATED TO INTOLERANCE OF BEING OFF BIPAP EVEN FOR SHORT PERIOD OF TIME TO GIVE ORAL ROUTE MEDICATIONS. DR CEDILLO AND DR ELIZABETH AWARE OF ABOVE. IV ATIVAN ORDER OBTAINED BUT I DID NOT NEED TO GIVE IT. AT TIME OF THIS NOTE PT IS RESTING QUIETLY. NO INDICATIONS OF RESPIRATORY DISTRESS OR PAIN
[2020-02-19 00:27] VITALS: BP 164/84
[2020-02-19 04:20] VITALS: BP 149/87
--- NOTE | 2020-02-19 06:55 | NUR ---
ASSUMED PT CARE AT APPROX 1930. PT IS AWAKE AND ORIENTED X4. PT IS SR ON THE INDEPENDENT FREIGHT AGENT. PT IS SHORT OF BREATH, IS MAINTAINED ON THE BIPAP WITH FIO2 OF 100% THROUGHOUT THIS SHIFT, PT DESATURATES QUICKLY WHEN BIPAP IS TAKEN OFF FOR PO MEDS TO LOW 79%, spO2 REMAINED BETWEEN 92-96 WHEN BIPAP IS ON. PT IS CLOSELY MONITORED.
[2020-02-19 07:02] LABS: HEMATOCRIT 34.3 % (37.0-47.0); HEMOGLOBIN 11.3 gm/dL (12.0-15.0); MCH 32.7 pg (26.0-34.0); MCHC 32.9 g/dL (28.0-37.0); MCV 99.6 fL (80.0-100.0); MPV 11.6 fl. (7.2-11.1); NUCLEATED RBCS 0 /100WBC; PLATELET COUNT* 96 thou/uL (150-400); RBC 3.44 mil/uL (4.20-5.00); RDW-CV 14.2 % (10.5-14.5); WBC 11.5 thou/uL (4.0-11.0)
[2020-02-19 07:19] LABS: ALBUMIN 2.2 g/dL (3.4-5.0); CALCIUM 7.8 mg/dL (8.5-10.1); CREATININE 0.6 mg/dL (0.6-1.3); PHOSPHORUS* 2.5 mg/dL (2.5-4.9); POTASSIUM 3.6 mmol/L (3.5-5.1); TOTAL BILIRUBIN 0.6 mg/dL (<0.1-1.0); TOTAL PROTEIN 5.6 g/dL (6.4-8.2)
[2020-02-19 08:00] VITALS: BP 141/66
[2020-02-19 08:05] LABS: ABSOLUTE LYMPHOCYTES 0.6 thou/uL (0.8-5.3); ABSOLUTE MONOCYTES 0.1 thou/uL (0.0-1.2); ABSOLUTE NEUTROPHILS 10.8 thou/uL (1.6-8.1); METAMYELOCYTES 1 %; PLATELET ESTIMATE ADEQUATE
[2020-02-19 12:00] VITALS: BP 102/68
[2020-02-19 12:00] LABS: BE 9.3 mmol/L (-2 to +3); PCO2 47.3 mmHg (35.0-45.0); PO2 63.5 mmHg (75.0-100.0); pH 7.476 (7.340-7.450)
--- NOTE | 2020-02-19 12:31 | NUR ---
Pt bipap dependent. Updated Yesy at [facility], faxed updated clinicals.
[2020-02-19 16:00] VITALS: BP 136/64
--- NOTE | 2020-02-19 18:58 | NUR ---
PT TOLERATED HEATED HIGH FLOW FIO2 100% TILL 1600, DR CLARA CHAVEZ WITH MIN. SPO2 AT 88% ON HIGH FLOW. BACK ON BIPAP SINCE 1600. ATE 10-20% OF HER MEALS. Q2 TURNS AND ORAL CARE PROVIDED. STATES SHE IS FEELING BETTER TODAY.
[2020-02-19 20:00] VITALS: BP 141/76
[2020-02-20] VITALS: BP 151/84
[2020-02-20 04:00] VITALS: BP 151/77
--- NOTE | 2020-02-20 04:47 | NUR ---
ASSUMED PT CARE AT APPROX 1930. PT IS AWAKE AND ORIENTED X4. PT IS SR/SB ON THE TELEGRAPH DISPATCHER. PT REMAINED SHORT OF AIR, MAINTAINED ON THE BIPAP THROUGHOUT THIS SHIFT WITH FIO2 OF 90%. spO2 IS BETWEEN 90-96%. NO OTHER CHANGES THIS SHIFT. CALL LIGHT WITHIN REACH. PT IS REPOSITIONED Q2H. FALL PRECAUTIONS IN PLACE. PT IS CLOSELY MONITORED.
[2020-02-20 06:19] LABS: ABSOLUTE BASOPHILS 0.1 thou/uL (0.0-0.2); ABSOLUTE LYMPHOCYTES 0.3 thou/uL (0.8-5.3); ABSOLUTE MONOCYTES 0.4 thou/uL (0.0-1.2); ABSOLUTE NEUTROPHILS 13.8 thou/uL (1.6-8.1); BASOPHILS 0.5 %; HEMATOCRIT 35.3 % (37.0-47.0); HEMOGLOBIN 11.5 gm/dL (12.0-15.0); LYMPHOCYTES 2.3 %; MCH 32.4 pg (26.0-34.0); MCHC 32.7 g/dL (28.0-37.0); MCV 99.1 fL (80.0-100.0); MONOCYTES 2.8 %; MPV 11.8 fl. (7.2-11.1); NUCLEATED RBCS 0 /100WBC; PLATELET COUNT* 108 thou/uL (150-400); POLYS 94.4 %; RBC 3.56 mil/uL (4.20-5.00); RDW-CV 14.2 % (10.5-14.5); WBC 14.6 thou/uL (4.0-11.0)
[2020-02-20 06:30] LABS: ALBUMIN 2.2 g/dL (3.4-5.0); CALCIUM 8.1 mg/dL (8.5-10.1); CREATININE 0.7 mg/dL (0.6-1.3); MAGNESIUM 2.2 mg/dL (1.8-2.4); POTASSIUM 3.7 mmol/L (3.5-5.1); TOTAL BILIRUBIN 0.6 mg/dL (<0.1-1.0); TOTAL PROTEIN 5.5 g/dL (6.4-8.2)
[2020-02-20 08:00] VITALS: BP 148/82
[2020-02-20 12:40] VITALS: BP 156/86
--- NOTE | 2020-02-20 13:45 | NUR ---
Pt back on bipap, desatting with movement. Wounds to face d/t mask. Pulm following.
[2020-02-20 18:36] VITALS: BP 127/65
--- NOTE | 2020-02-20 19:58 | NUR ---
ASSUMED PT CARE AT 0730, PT AOX4, NO C/O PAIN BUT IS SHORT OF BREATH WHEN BEING MOVED AROUND. PT WORKED W/ RT MULTIPLE TIMES TODAY TO SWITCH FROM BIPAP TO HEATED HIGH FLOW TO MAINTAIN SATS OF 88% OR ABOVE. PT IN ISO FOR COVID. PT TRYING TO BE TURNED Q2H BUT SOMETIMES REFUSES. PT GOAL IS TO KEEP SATS ABOVE 88% AND REMAIN FREE FROM SKIN BREAKDOWN. AM ASSESSMENT CHARTED, MEDS PER MAR, HOURLY ROUNDING OBSERVED, FALL PECAUTIONS IN PLACE, CALL LIGHT W/IN REACH.
[2020-02-20 20:00] VITALS: BP 143/67
[2020-02-21 00:47] VITALS: BP 147/66
[2020-02-21 04:00] VITALS: BP 150/70
--- NOTE | 2020-02-21 04:59 | NUR ---
ASSUMED PT CARE AT APPROX 1930. PT IS AWAKE AND ORIENTED X4. PT IS TRACING SR ON THE NATURAL GAS PLANT TECHNICIAN. PT HAS spO2 BETWEEN 88-94 ON THE HEATED HIGHFLOW CANNULA AND ON THE BIPAP, PT DESATURATES WITH SIMPLE ACTIVITIES LIKE TALKING AND EATING TO THE MID 80's. PT VERBALIZED SHE FEELS BETTER. NO ACUTE CHANGES THROUGHOUT THIS SHIFT. CALL LIGHT WITHIN REACH. HOURLY ROUNDING DONE FOR PT SAFETY. FALL PRECAUTIONS IN PLACE
[2020-02-21 08:00] VITALS: BP 140/70
[2020-02-21 08:18] LABS: ABSOLUTE BASOPHILS 0.1 thou/uL (0.0-0.2); ABSOLUTE LYMPHOCYTES 0.3 thou/uL (0.8-5.3); ABSOLUTE MONOCYTES 0.4 thou/uL (0.0-1.2); ABSOLUTE NEUTROPHILS 13.3 thou/uL (1.6-8.1); BASOPHILS 0.6 %; HEMATOCRIT 32.8 % (37.0-47.0); HEMOGLOBIN 10.7 gm/dL (12.0-15.0); LYMPHOCYTES 2.2 %; MCH 32.3 pg (26.0-34.0); MCHC 32.8 g/dL (28.0-37.0); MCV 98.7 fL (80.0-100.0); MONOCYTES 2.6 %; MPV 10.6 fl. (7.2-11.1); NUCLEATED RBCS 0 /100WBC; PLATELET COUNT* 112 thou/uL (150-400); POLYS 94.6 %; RBC 3.32 mil/uL (4.20-5.00)
[2020-02-21 08:23] LABS: ALBUMIN 2.4 g/dL (3.4-5.0); ALKALINE PHOSPHATASE 58 U/L (46-116); ANION GAP < 0 mmol/L (7-16); BUN 33 mg/dL (7-18); CALCIUM 8.3 mg/dL (8.5-10.1); CHLORIDE 105 mmol/L (98-107); CO2 41 mmol/L (21-32); CREATININE 0.6 mg/dL (0.6-1.3); GLUCOSE 121 mg/dL (70-99); MAGNESIUM 2.4 mg/dL (1.8-2.4); POTASSIUM 3.8 mmol/L (3.5-5.1); SGOT 30 U/L (15-37); SGPT 40 U/L (30-65); SODIUM 145 mmol/L (136-145); TOTAL BILIRUBIN 0.5 mg/dL (<0.1-1.0); TOTAL PROTEIN 5.4 g/dL (6.4-8.2)
--- NOTE | 2020-02-21 11:06 | NUR ---
Pt remains on bipap, desats on HF o2. Anticipate dc in a few days.
[2020-02-21 15:06] VITALS: BP 147/65
[2020-02-21 15:13] LABS: BE 9.7 mmol/L (-2 to +3); PCO2 48.2 mmHg (35.0-45.0); PO2 76.4 mmHg (75.0-100.0); pH 7.473 (7.340-7.450)
--- NOTE | 2020-02-21 19:47 | NUR ---
PT HAS BEEN ALERT, ORIENTED AND COOPERATIVE WITH STAFF. ABLE TO USE CALL LIGHT TO OBTAIN NURSING ASSISTANCE. NO C/O OR INDICATION OF PAIN OR DISTRESS. OFF BIPAP FOR 3 HOURS THIS AM. PT ABLE TO REQUEST RETURN TO BIPAP. MEDICATED X 1 WITH XANAX. REPORT AND CARES TO OPTICAL LABORATORY MECHANIC RN
[2020-02-21 20:00] VITALS: BP 139/63
[2020-02-22] VITALS: BP 132/62
--- NOTE | 2020-02-22 02:06 | NUR ---
PT ALERT ORIENTED X3. ON BIPAP. RT SWITCHED TO NASAL COVER. NASAL BRIDGE WITH OPEN SORE. AREA DRESSED AND WOUND CARE CONSULTED. FIO2 AT 80% COUGH WEAK NONPRODUCTIVE. TELEMETRY SHOWS SR. WCTM
[2020-02-22 04:00] VITALS: BP 140/76
[2020-02-22 08:00] VITALS: BP 108/52
--- NOTE | 2020-02-22 09:41 | NUR ---
RECIEVED REPORT AROUND 0715. ASSUMED CARE. VS AND ASSESSMENT CHARTED. PT ON HEATED HI FLOW 45L, 100% SAT IN UPPER 80'S TO LOWER 90'S. PT LYING IN BED EATING BREAKFAST. MEDS GIVEN THIS AM PER JUN. CRUSHED AND PUT IN PUDDING. PT HAS A HARD TIME BEING ABLE TO SWALLOW BIGGER PILLS. REINFORCED PT TO TAKE SLOW DEEP BREATHS. PT STATED "THAT HELPS A LOT. THANK YOU." PT STATED "NO" TO ANY PAIN. CALL LIGHT WITHIN REACH. WILL CONTINUE TO MONITOR.
[2020-02-22 09:55] LABS: ABSOLUTE LYMPHOCYTES 0.3 thou/uL (0.8-5.3); ABSOLUTE MONOCYTES 0.2 thou/uL (0.0-1.2); ABSOLUTE NEUTROPHILS 14.8 thou/uL (1.6-8.1); BASOPHILS 0.2 %; HEMOGLOBIN 11.5 gm/dL (12.0-15.0); LYMPHOCYTES 1.8 %; MCH 31.9 pg (26.0-34.0); MCHC 31.8 g/dL (28.0-37.0); MCV 100.3 fL (80.0-100.0); MONOCYTES 1.5 %; MPV 10.4 fl. (7.2-11.1); NUCLEATED RBCS 0 /100WBC; PLATELET COUNT* 114 thou/uL (150-400); POLYS 96.5 %; RBC 3.58 mil/uL (4.20-5.00); RDW-CV 14.4 % (10.5-14.5); WBC 15.3 thou/uL (4.0-11.0)
[2020-02-22 10:10] LABS: ALBUMIN 2.4 g/dL (3.4-5.0); CREATININE 0.7 mg/dL (0.6-1.3); MAGNESIUM 2.4 mg/dL (1.8-2.4); POTASSIUM 3.2 mmol/L (3.5-5.1); TOTAL BILIRUBIN 0.5 mg/dL (<0.1-1.0); TOTAL PROTEIN 5.4 g/dL (6.4-8.2)
[2020-02-22 12:00] VITALS: BP 125/71
[2020-02-22 16:00] VITALS: BP 122/71
--- NOTE | 2020-02-22 18:18 | NUR ---
PT ON 50L HI FLOW NASAL CANNULA. DID NOT TOLERATE ALL DAY. WAS PUT ON BIPAP FOR HALF OF SHIFT. TAKEN OFF CURRENTLY TO GIVE BREAK. SAT'S ARE IN LOWER 90'S. IV INTACT. HEART MONITOR ATTACHED. HOURLY ROUNDING PERFORMED. MEDS GIVEN PER JUN. NO REPORTS OF PAIN. UPDATED SON ON PT. TALKED TO PT ABOUT PALLIATIVE CARE. NOTIFIED DR GOODRICH TO PROVIDE MORE INFORMATION ON THE SUBJECT TO PT TOMORROW. PT ATE WHILE ON NC. BUT DID NOT EAT WHILE BIPAP ON SATS WOULD DECREASE IF TAKEN OFF. CALL LIGHT WITHIN REACH. WILL CONTINUE TO MONITOR.
[2020-02-22 20:00] VITALS: BP 140/71
[2020-02-23 00:07] VITALS: BP 118/66; BP 162/73
--- NOTE | 2020-02-23 01:16 | NUR ---
PT ALERT ORIENTED. ON BED REST TURN Q 2 HRS. TELEMETRY SHOWS SR. FIO2 AT 97% FLOW AT 50% PT HAS AN OPEN WOUND ON THE BRIDGE OF NOSE DRESSED. PT WENT ON BIPAP AT HS. COUGH WEAK NON PRODUCTIVE. R PICC TL. BARBARA WITH YELLOW. WCTM
[2020-02-23 04:00] VITALS: BP 158/60
[2020-02-23 04:23] LABS: HEMATOCRIT 32.6 % (37.0-47.0); HEMOGLOBIN 10.6 gm/dL (12.0-15.0); MCH 32.5 pg (26.0-34.0); MCHC 32.5 g/dL (28.0-37.0); MCV 100.1 fL (80.0-100.0); MPV 10.8 fl. (7.2-11.1); RBC 3.26 mil/uL (4.20-5.00); RDW-CV 14.3 % (10.5-14.5); WBC 14.9 thou/uL (4.0-11.0)
[2020-02-23 04:37] LABS: ALBUMIN 2.3 g/dL (3.4-5.0); CALCIUM 7.9 mg/dL (8.5-10.1); CREATININE 0.7 mg/dL (0.6-1.3); MAGNESIUM 2.6 mg/dL (1.8-2.4); POTASSIUM 3.8 mmol/L (3.5-5.1); TOTAL BILIRUBIN 0.4 mg/dL (<0.1-1.0); TOTAL PROTEIN 5.2 g/dL (6.4-8.2)
[2020-02-23 08:00] VITALS: BP 162/83
[2020-02-23 12:00] VITALS: BP 128/67
--- NOTE | 2020-02-23 17:46 | NUR ---
RECEIVED REPORT FROM TRISTA RN. ASSUMED CARE OF PT AROUND 0730. PT A&O X3, ELECTRICAL RESEARCH ENGINEER IN PLACE. AM ASSESSMENT AND VITALS COMPLETED CHARTED. PT ASSISTED WITH MEALS, APPETITE POOR. CALORIE COUNT STARTED AND HUNG ON THE DOOR. JIMENEZ IN PLACE TO DD. PT TOLERATING HEATED HIGH FLOW CANNULA, USING BIPAP DURING SLEEP. MONDAY PIC TAKEN. PT REFUSING TO TURN TO THE SIDE MOST OF THE TIME, BUT DOES SHIFT HER WEIGHT IN THE BED. UNABLE TO OBTAIN ORTHOSTATIC BP'S - PT TOO WEAK TO STAND AND DESATS IMMEDIATELY WITH ACTIVITY. MEDS PER EMAR. PT SLOWLY PROGRESSING, BUT STATES SHE IS "SO TIRED". LAST BM UNKNOWN. PT CURRENTLY WATCHING TV IN BED. CALL LIGHT IS WITHIN REACH. HOURLY ROUNDING PERFORMED. FALL PRECAUTIONS IN PLACE.
[2020-02-23 18:15] VITALS: BP 147/72
[2020-02-23 20:00] VITALS: BP 147/79
[2020-02-24] VITALS: BP 146/76
[2020-02-24 03:48] VITALS: BP 141/69
--- NOTE | 2020-02-24 03:50 | NUR ---
ASSESSMENT: PT ON BIPAP EARLY TONIGHT, DID NOT TOLERATE HEATED HI-FLOW WELL, SATS HIGH 80'S. ATIVAN GIVEN, PT SLEEPING. TURNS SELF. SR-ST PER MONITOR. JIMENEZ PATENT WITH DK YELLOW OUTPUT, NO BM THIS SHIFT. REMAINS IN ENHANCED PREC FOR COVID +. PICC PATENT. SLOW TO POOR PROGRESS TOWARDS DC GOALS, WILL CONTINUE TO MONITOR.
[2020-02-24 05:06] LABS: HEMATOCRIT 30.3 % (37.0-47.0); HEMOGLOBIN 9.9 gm/dL (12.0-15.0); MCH 32.3 pg (26.0-34.0); MCHC 32.6 g/dL (28.0-37.0); MCV 99.2 fL (80.0-100.0); MPV 10.1 fl. (7.2-11.1); RBC 3.05 mil/uL (4.20-5.00); RDW-CV 13.8 % (10.5-14.5); WBC 15.6 thou/uL (4.0-11.0)
[2020-02-24 05:19] LABS: ALBUMIN 2.1 g/dL (3.4-5.0); CALCIUM 7.4 mg/dL (8.5-10.1); CREATININE 0.5 mg/dL (0.6-1.3); MAGNESIUM 2.3 mg/dL (1.8-2.4); POTASSIUM 3.5 mmol/L (3.5-5.1); TOTAL BILIRUBIN 0.4 mg/dL (<0.1-1.0); TOTAL PROTEIN 4.7 g/dL (6.4-8.2)
[2020-02-24 08:00] VITALS: BP 150/74
--- NOTE | 2020-02-24 09:48 | NUR ---
WOUND NURSE: PATIENT SEEN FOR ASSESSMENT PERTAINING TO STAGE 2 DEVICE RELATED PRESSURE INJURY ON THE BRIDGE OF HER NOSE CAUSED BY BIPAP MASK. MEASURS 0.3 X 0.3 X 0.1 CM AND PRESENTS WITH PARTIAL THICKNESS TISSUE LOSS. CURRENTLY WEARING NASAL PILLOWS. THERE IS SCANT YELLOW DRAINAGE AND NO PERIWOUND REDNESS WARMTH OR INDURATIONA. CLEANSED WITH NORAL SALINE AND GAUZE, THEN APPLIED EXUDERM LP CUT TO FIT. THIS WAS TOLERATED WELL BY THE PATIENT. PATIENT IS NOT TEACHEABLE AT THIS TIME. RECOMMEND THAT FACE PROTECTED WITH OPTIFOAM GENTLE CUT TO FIT IF FACE MASK HAS TO BE USED IN THE FUTURE.
--- NOTE | 2020-02-24 12:27 | NUR ---
CM spoke with son re: LTAC vs hospice, to call son and discuss further. Pt still requiring HF o2.
[2020-02-24 13:20] VITALS: BP 145/76
--- NOTE | 2020-02-24 18:54 | NUR ---
PT. ALERT, ON HF O2, STABLE O2 SATURATION, Q2 TURNS, CALL LIGHT AND PERSONAL BELONGINGS PLACED WITHIN REACH. PT. FED MEALS, REFUSES MOST OF FOOD, PT. IN BED, RESTING WIH EYES CLOSED AT THIS TIME.
[2020-02-24 19:19] VITALS: BP 133/71
[2020-02-24 20:00] VITALS: BP 149/79
--- NOTE | 2020-02-24 20:00 | NUR ---
RECEIVED REPORT AND ASSUMED CARE OF PT, ASSESSMENT COMPLETED AT THIS TIME. PT RESTING WITH EYES CLOSED, VERY LITTLE CONVERSATION. REPOSITIONED IN BED, PT NOT ASSISTING WITH MOVEMENT. HOB ELEVATED, O2 ON AT 45% HHFC AT 70%. PT DESATS EASILTY WITH ANY ACTIVITY. TELEMETRY ON SHOWING SR. WILL CONT TO MONITOR AND ASSIST NEED. REMAINS IN ENHANCED ISOLATION.
[2020-02-25] VITALS: BP 156/97
[2020-02-25 04:00] VITALS: BP 135/70
--- NOTE | 2020-02-25 05:34 | NUR ---
SLEPT ALL NIGHT, AWAKENS EASILY FOR CARE AND REPOSITIONING. REMAINS ON HEATED HFC WITH O2 SATS INTO 90'S. TOLERATING PO MEDS CRUSHED IN APPLESAUCE. WILL NOT TAKE ADDITIONAL FLUIDS OR APPLESAUCE. TELEMETRY CONT TO SHOW SR. NO CHANGE IN ASSESSMENT. HS GOALS OF REST AND SAFETY ACHIEVED. HOURLY ROUNDING OBSERVED.
[2020-02-25 08:00] VITALS: BP 160/76
--- NOTE | 2020-02-25 12:55 | NUR ---
CM left for Pt's son to discuss what he and Dr talked about yesterday re: hospice vs LTAC. Faxed updates to [facility].
[2020-02-25 16:00] VITALS: BP 140/68
--- NOTE | 2020-02-25 19:50 | NUR ---
care provided from 0700 to 1900. pt has remained alert, oriented and able to communicate her needs to nursing staff. pt has tolerated high reji 02 this shift and returned to bipap twice this shift. pt c/o tongue/throat pain. order obtained to change mucinex to liquid vs tablet form. also obtained order for nystatin oral solution. pt medicated x 1 with xanax to promote rest and relaxation when on bipap this afternoon. swabs for covid to lab. results pending. report and cares to stage rigger.
[2020-02-25 20:26] VITALS: BP 163/96
[2020-02-26 01:16] VITALS: BP 145/72
[2020-02-26 04:36] LABS: HEMATOCRIT 28.6 % (37.0-47.0); HEMOGLOBIN 9.3 gm/dL (12.0-15.0); MCH 31.9 pg (26.0-34.0); MCHC 32.4 g/dL (28.0-37.0); MCV 98.3 fL (80.0-100.0); MPV 9.9 fl. (7.2-11.1); NUCLEATED RBCS 0 /100WBC; PLATELET COUNT* 94 thou/uL (150-400); RBC 2.91 mil/uL (4.20-5.00); RDW-CV 14.1 % (10.5-14.5); WBC 14.4 thou/uL (4.0-11.0)
[2020-02-26 04:50] LABS: ALBUMIN 3.1 g/dL (3.4-5.0); CALCIUM 8.3 mg/dL (8.5-10.1); CREATININE 0.6 mg/dL (0.6-1.3); MAGNESIUM 2.4 mg/dL (1.8-2.4); POTASSIUM 4.1 mmol/L (3.5-5.1); TOTAL BILIRUBIN 0.6 mg/dL (<0.1-1.0); TOTAL PROTEIN 5.7 g/dL (6.4-8.2)
[2020-02-26 06:06] LABS: ABSOLUTE LYMPHOCYTES 0.6 thou/uL (0.8-5.3); ABSOLUTE MONOCYTES 0.1 thou/uL (0.0-1.2); ABSOLUTE NEUTROPHILS 13.7 thou/uL (1.6-8.1); ANISOCYTOSIS 1+; HYPOCHROMASIA Occasional; PLATELET ESTIMATE DECREASED; POIKILOCYTOSIS 1+
[2020-02-26 08:00] VITALS: BP 153/73
--- NOTE | 2020-02-26 11:50 | NUR ---
CM spoke with son, informed of referral sent to [facility], waiting their decision to accept, then will need insurance auth. Son did state that his mother would not want to prolong her life. Pt's o2 needs slightly improved, Pt on 35L HF, not eating well. Following.
[2020-02-26 16:00] VITALS: BP 147/83
[2020-02-26 18:14] LABS: BE 5.4 mmol/L (-2 to +3); PCO2 VENOUS 50.6 mmHg (41.0-51.0); PO2 VENOUS 58.8 mmHg (35.0-45.0)
[2020-02-26 18:23] LABS: CALCIUM 8.8 mg/dL (8.5-10.1); CREATININE 0.7 mg/dL (0.6-1.3); MAGNESIUM 2.4 mg/dL (1.8-2.4); POTASSIUM 4.5 mmol/L (3.5-5.1)
[2020-02-26 20:00] VITALS: BP 159/95
[2020-02-26 23:00] VITALS: BP 148/90
[2020-02-26 23:36] VITALS: BP 148/90
[2020-02-27 04:35] LABS: HEMATOCRIT 30.5 % (37.0-47.0); HEMOGLOBIN 9.9 gm/dL (12.0-15.0); MCH 32.7 pg (26.0-34.0); MCHC 32.5 g/dL (28.0-37.0); MCV 100.7 fL (80.0-100.0); MPV 11.3 fl. (7.2-11.1); RBC 3.03 mil/uL (4.20-5.00); RDW-CV 14.3 % (10.5-14.5); WBC 14.6 thou/uL (4.0-11.0)
--- NOTE | 2020-02-27 04:40 | NUR ---
PT ALERT ORIENTED. COOPERATIVE TONIGHT. DENIES PAIN. BIPAP AT 50% FIO2. RATE SET AT 12 PT BREATHING OVER SET RATE 24-37. XANAX GIVEN. TELEMETRY SHOWS SR. TURN Q 2 HRS. JIMENEZ WITH YELLOW, MEDS GIVEN WITH APPLE SAUCE. REED PIC ALL PORTS FLUSHING. [place] WORKS BEST FOR LAB DRAWS. [facility]
[2020-02-27 04:58] LABS: CALCIUM 8.4 mg/dL (8.5-10.1); CREATININE 0.6 mg/dL (0.6-1.3); MAGNESIUM 2.4 mg/dL (1.8-2.4)
[2020-02-27 08:46] VITALS: BP 130/62
[2020-02-27 12:00] VITALS: BP 148/83
--- NOTE | 2020-02-27 13:18 | NUR ---
Pt medically stable to transfer to LTAC. ALAN spoke with Ryley from [facility], they are working on insurance auth
[2020-02-27 16:00] VITALS: BP 154/88
[2020-02-27 22:00] VITALS: BP 157/90
[2020-02-28 04:00] VITALS: BP 153/87
--- NOTE | 2020-02-28 05:01 | NUR ---
PT ALERT ORIENTED TO SELF AND PLACE. ON BED REST TURN Q 2 HR. ATIVAN PP GIVEN FOR ANXIETY AND RR 40S. GOOD RESPONCE WITH ATIVAN RR DOWN TO 19 ON BIPAP WITH FIO2 AT 50% JIMENEZ WITH YELLOW. DRSG ON BRIDGE OF NOSE FOR BREAK DOWN. WOUND CARE NURSE FOLLOWING. TELEMETRY SHOWS SR/ST. WCTM
[2020-02-28 10:00] VITALS: BP 154/98
--- NOTE | 2020-02-28 14:47 | NUR ---
Pt weaned down to 8L NC, working to wean down further. Pt may be able to return to her LTC at dc, instead of going to LTAC, if she is weaned. RT to continue to work with Pt. ALAN updated Yesy at [facility], faxed updates. LTC can accept Pt back over the weekend if she is weaned down to 5L, they will need to order a 10L concentrator prior to her return. Yesy will reach out to CM tomorrow for update. ALAN updated son [facility] p:[phone] f:[phone]
[2020-02-28 16:00] VITALS: BP 131/74
--- NOTE | 2020-02-28 19:36 | NUR ---
PT. AOX2-3, INCREASINGLY AWAKE, TOLERATING O2 NC 5L. CALL LIGHT AND PERSONAL BELONGINGS PLACED WITHIN REACH. PT. TURNED Q2, REFUSES AT TIMES. MEALS SETUP AND FED. PT. IN BED, WATCHING TV, IN NO APPARENT DISTRESS, AT SHIFT CHANGE.
--- NOTE | 2020-02-28 20:00 | NUR ---
RECEIVED REPORT AND ASSUMED CARE OF PT, ASSESSMENT COMPLETED. HOB ELEVATED. O2 ON AT 5L/HFC, DYSPNEA WITH ACTIVITY. CONT PULSE OX ON. ENCOURAGED PO FLUIDS BUT PT ONLY TAKING SIPS. REPOSITIONED IN BED, PT NOT ABLE TO ASSIST. JIMENEZ PATENT WITH URINE BEING CLOUDY YELLOW WITH THICK SEDIMENT. TELEMETRY ON SHOWING SR. WILL CONT TO MONITOR AND ASSIST NEEDED.
[2020-02-29] VITALS: BP 139/71; BP 139/84
[2020-02-29 04:00] VITALS: BP 150/89
--- NOTE | 2020-02-29 06:00 | NUR ---
PT'S MOUTH EXTREMELY SORE AND PAINFUL TO TAKE LIQ MEDS. PT BRENNON BIPAP MOST OF NIGHT, BACK ON 5L/HFC AT PRESENT. TELEMETRY SHOWING SR. NO CHANGE IN ASSESSMENT. HS GOALS OF REST AND SAFETY ACHIEVED. HOURLY ROUNDING OBSERVED.
[2020-02-29 07:25] LABS: ABSOLUTE LYMPHOCYTES 0.6 thou/uL (0.8-5.3); ABSOLUTE MONOCYTES 0.2 thou/uL (0.0-1.2); ABSOLUTE NEUTROPHILS 10.4 thou/uL (1.6-8.1); BASOPHILS 0.1 %; EOSINOPHILS 0.1 %; HEMATOCRIT 34.2 % (37.0-47.0); HEMOGLOBIN 11.3 gm/dL (12.0-15.0); LYMPHOCYTES 4.9 %; MCH 32.6 pg (26.0-34.0); MONOCYTES 1.8 %; MPV 10.1 fl. (7.2-11.1); NUCLEATED RBCS 0 /100WBC; PLATELET COUNT* 131 thou/uL (150-400); POLYS 93.1 %; RBC 3.45 mil/uL (4.20-5.00); RDW-CV 14.4 % (10.5-14.5); WBC 11.2 thou/uL (4.0-11.0)
--- NOTE | 2020-02-29 07:30 | NUR ---
CHMAGE OF SHIFT BEDSIDE REPORT GIVEN PATIENT SEEN AT BEDSIDE, IN BED ASLEEP ASSUMED PATIENT CARE
[2020-02-29 07:50] LABS: ALBUMIN 2.7 g/dL (3.4-5.0); CALCIUM 8.6 mg/dL (8.5-10.1); CREATININE 0.5 mg/dL (0.6-1.3); MAGNESIUM 2.2 mg/dL (1.8-2.4); POTASSIUM 3.8 mmol/L (3.5-5.1); TOTAL BILIRUBIN 0.5 mg/dL (<0.1-1.0)
[2020-02-29 08:00] VITALS: BP 132/78
[2020-02-29 20:30] VITALS: BP 132/87
[2020-03-01 05:00] VITALS: BP 158/84
[2020-03-01 05:26] LABS: HEMATOCRIT 35.3 % (37.0-47.0); HEMOGLOBIN 11.3 gm/dL (12.0-15.0); MCH 31.7 pg (26.0-34.0); MCHC 32.1 g/dL (28.0-37.0); MCV 98.7 fL (80.0-100.0); MPV 10.1 fl. (7.2-11.1); NUCLEATED RBCS 0 /100WBC; PLATELET COUNT* 156 thou/uL (150-400); RBC 3.58 mil/uL (4.20-5.00); RDW-CV 14.4 % (10.5-14.5); WBC 11.5 thou/uL (4.0-11.0)
[2020-03-01 05:43] LABS: ALBUMIN 2.9 g/dL (3.4-5.0); CALCIUM 8.5 mg/dL (8.5-10.1); CREATININE 0.6 mg/dL (0.6-1.3); TOTAL BILIRUBIN 0.5 mg/dL (<0.1-1.0); TOTAL PROTEIN 6.2 g/dL (6.4-8.2)
[2020-03-01 06:11] LABS: ABSOLUTE LYMPHOCYTES 0.8 thou/uL (0.8-5.3); ABSOLUTE MONOCYTES 0.2 thou/uL (0.0-1.2); ABSOLUTE NEUTROPHILS 10.5 thou/uL (1.6-8.1); PLATELET ESTIMATE ADEQUATE
[2020-03-01 06:12] LABS: HYPOCHROMASIA 1+
--- NOTE | 2020-03-01 07:10 | NUR ---
CHANGE OF SHIFT BEDSIDE REPORT GIVEN PATIENT SEN AT BEDSIDE, IN BED ASLEEP BIPAP ON ASSUMED PATIENT CARE
[2020-03-01] MEDS ORDERED: MS CONTIN60 MG PO (08:58)
[2020-03-01] MEDS ORDERED: NEXIUM40 MG PO (08:58)
[2020-03-01] MEDS ORDERED: PREDNISONE 10 M10 MG PO (08:58)
[2020-03-01] MEDS ORDERED: IPRAT-ALBUT 0.5-3 ML INH (08:58)
[2020-03-01] MEDS ORDERED: DOXYCYCLINE 10100 M2 PO (08:59)
[2020-03-01 12:30] VITALS: BP 135/81
[2020-03-01 20:00] VITALS: BP 124/70
--- NOTE | 2020-03-01 20:00 | NUR ---
RECEIVED REPORT AND ASSUMED CARE OF PT, ASSESSMENT COMPLETED. PT MORE TALKATIVE THIS EVENING. HOB ELEVATED, O2 ON AT 4L/HFC. CONT PULSE OX ON. REPOSITIONED IN BED. TOOK PO MEDS BETTER THIS EVENING, CRUSHED AND IN APPLESAUCE. TELEMETRY ON SHOWING SR. WILL CONT TO MONITOR AND ASSIST NEEDED.
[2020-03-02] VITALS: BP 142/92
[2020-03-02 04:30] VITALS: BP 142/86
--- NOTE | 2020-03-02 06:16 | NUR ---
MUCH MORE ALERT TONIGHT AND COOPERATIVE. REPOSITIONED Q 2HR. SL COUGH WITH SIPS OF WATER. TELEMETRY CONT TO SHOW SR. TOLERATED BIPAP TONIGHT, RETURNED TO 4L/HFC THIS AM. HS GOALS OF REST AND SAFETY ACHIEVED. HOURLY ROUNDING OBSERVED.
[2020-03-02 08:00] VITALS: BP 147/82
--- NOTE | 2020-03-02 09:12 | NUR ---
RECIEVED REPORTA ROUND 0715. ASSUMED CARE. ISOLATINO INTACT. JIMENEZ INTACT. IS TO BE DISCHARGED WITH JIMENEZ PER DR. MAHAN. IV INTACT RIGHT UPPER ARM PICC. MEDS GIVEN THIS AM CRUSHED IN APPLESAUCE, PT WAS ALBE TO TAKE SEVERAL SMALL BITES. DRANK SOME SIPS OF ENSURE AND SIPS OF WATER. PT IS ON HI FLOW 4L NC. PT LYING IN BED. PT DENIES ANY PAIN. PT MAKES FACIAL GRIMMACES, APPEARS TO BE EXAUSTED. COULD NOT SAY WHERE SHE WAS. CAN STATE YEAR AND NAME. CALL LIGHT WITHIN REACH. WILL CONTINUE TO MONITOR.
[2020-03-02 12:49] VITALS: BP 154/86
--- NOTE | 2020-03-02 13:29 | NUR ---
Pt medically stable to dc. Pt will need skilled, Pt's LTC facility is out of network with Pt's [employer], will send Pt to [facility] for skilled, once complete, she will return to [facility]. Pt aware and in agreement with POC. Faxed referral and dc orders to [facility]. Chart copied. Nurse report number is [phone]. Pt will require an ambulance transport, plan to set up for between 4-430pm. PT seeing Pt now, CM to fax therapy note. Pt remains covid positive, SNF aware. CM checking to see if SNF needs an updated covid test, CM confirmed that a rapid covid test is not required. [facility] [phone]
--- NOTE | 2020-03-02 15:57 | NUR ---
RECIEVED DISCHARGE ORDERS. HEART MONITOR TAKEN OFF. IV TAKEN OUT. JIMENEZ TO STAY IN PLACE FOR DISCHARGE. REPORT GIVEN TO VERONICA AT REHAB FACILITY. AMBULANCE TO TRANSFER [facility] SCHEDULED FOR 1614.
== END 2020-03-02 17:28 | DRG 177 ==
LOC: M.ERS 11:38 → M.2W 15:25 → M.TBA-ER 15:25 → M.2W 18:14
PROVIDERS: Family Medicine; Internal Medicine; Internal Medicine Critical Care Medicine; Nurse Practitioner Family; ADMIT Internal Medicine; ATTEND Internal Medicine
PROC: XW033E5 Introduction of Remdesivir Anti-infective into Peripheral Vein, Percutaneous Approach, New Technology Group 5 (ICD-10-PCS; principal; 2020-02-07)
PROC: 5A0935A Assistance with Respiratory Ventilation, Less than 24 Consecutive Hours, High Flow/Velocity Cannula (ICD-10-PCS; principal; 2020-02-07)
PROC: XW13325 Transfusion of Convalescent Plasma (Nonautologous) into Peripheral Vein, Percutaneous Approach, New Technology Group 5 (ICD-10-PCS; 2020-02-08)
PROC: 5A0935A Assistance with Respiratory Ventilation, Less than 24 Consecutive Hours, High Flow/Velocity Cannula (ICD-10-PCS; 2020-02-09)
PROC: 5A0935A Assistance with Respiratory Ventilation, Less than 24 Consecutive Hours, High Flow/Velocity Cannula (ICD-10-PCS; 2020-02-10)
PROC: 5A09357 Assistance with Respiratory Ventilation, Less than 24 Consecutive Hours, Continuous Positive Airway Pressure (ICD-10-PCS; 2020-02-10)
PROC: 02HV33Z Insertion of Infusion Device into Superior Vena Cava, Percutaneous Approach (ICD-10-PCS; 2020-02-11)
PROC: 5A09357 Assistance with Respiratory Ventilation, Less than 24 Consecutive Hours, Continuous Positive Airway Pressure (ICD-10-PCS; 2020-02-11)
PROC: B548ZZA Ultrasonography of Superior Vena Cava, Guidance (ICD-10-PCS; 2020-02-11)
PROC: 5A09357 Assistance with Respiratory Ventilation, Less than 24 Consecutive Hours, Continuous Positive Airway Pressure (ICD-10-PCS; 2020-02-12)
PROC: 5A0935A Assistance with Respiratory Ventilation, Less than 24 Consecutive Hours, High Flow/Velocity Cannula (ICD-10-PCS; 2020-02-13)
PROC: 5A09357 Assistance with Respiratory Ventilation, Less than 24 Consecutive Hours, Continuous Positive Airway Pressure (ICD-10-PCS; 2020-02-14)
PROC: 5A0935A Assistance with Respiratory Ventilation, Less than 24 Consecutive Hours, High Flow/Velocity Cannula (ICD-10-PCS; 2020-02-15)
PROC: 5A09357 Assistance with Respiratory Ventilation, Less than 24 Consecutive Hours, Continuous Positive Airway Pressure (ICD-10-PCS; 2020-02-15)
PROC: 5A09357 Assistance with Respiratory Ventilation, Less than 24 Consecutive Hours, Continuous Positive Airway Pressure (ICD-10-PCS; 2020-02-16)
PROC: 5A0935A Assistance with Respiratory Ventilation, Less than 24 Consecutive Hours, High Flow/Velocity Cannula (ICD-10-PCS; 2020-02-16)
PROC: 5A09357 Assistance with Respiratory Ventilation, Less than 24 Consecutive Hours, Continuous Positive Airway Pressure (ICD-10-PCS; 2020-02-17)
PROC: 5A0935A Assistance with Respiratory Ventilation, Less than 24 Consecutive Hours, High Flow/Velocity Cannula (ICD-10-PCS; 2020-02-17)
PROC: 5A0935A Assistance with Respiratory Ventilation, Less than 24 Consecutive Hours, High Flow/Velocity Cannula (ICD-10-PCS; 2020-02-18)
PROC: 5A09357 Assistance with Respiratory Ventilation, Less than 24 Consecutive Hours, Continuous Positive Airway Pressure (ICD-10-PCS; 2020-02-18)
PROC: 5A0935A Assistance with Respiratory Ventilation, Less than 24 Consecutive Hours, High Flow/Velocity Cannula (ICD-10-PCS; 2020-02-19)
PROC: 5A09357 Assistance with Respiratory Ventilation, Less than 24 Consecutive Hours, Continuous Positive Airway Pressure (ICD-10-PCS; 2020-02-19)
PROC: 5A09357 Assistance with Respiratory Ventilation, Less than 24 Consecutive Hours, Continuous Positive Airway Pressure (ICD-10-PCS; 2020-02-20)
PROC: 5A09357 Assistance with Respiratory Ventilation, Less than 24 Consecutive Hours, Continuous Positive Airway Pressure (ICD-10-PCS; 2020-02-21)
PROC: 5A0935A Assistance with Respiratory Ventilation, Less than 24 Consecutive Hours, High Flow/Velocity Cannula (ICD-10-PCS; 2020-02-21)
PROC: 5A0935A Assistance with Respiratory Ventilation, Less than 24 Consecutive Hours, High Flow/Velocity Cannula (ICD-10-PCS; 2020-02-22)
PROC: 5A09357 Assistance with Respiratory Ventilation, Less than 24 Consecutive Hours, Continuous Positive Airway Pressure (ICD-10-PCS; 2020-02-22)
PROC: 5A09357 Assistance with Respiratory Ventilation, Less than 24 Consecutive Hours, Continuous Positive Airway Pressure (ICD-10-PCS; 2020-02-23)
PROC: 5A0935A Assistance with Respiratory Ventilation, Less than 24 Consecutive Hours, High Flow/Velocity Cannula (ICD-10-PCS; 2020-02-23)
PROC: 5A09357 Assistance with Respiratory Ventilation, Less than 24 Consecutive Hours, Continuous Positive Airway Pressure (ICD-10-PCS; 2020-02-24)
PROC: 5A0935A Assistance with Respiratory Ventilation, Less than 24 Consecutive Hours, High Flow/Velocity Cannula (ICD-10-PCS; 2020-02-24)
PROC: 5A0935A Assistance with Respiratory Ventilation, Less than 24 Consecutive Hours, High Flow/Velocity Cannula (ICD-10-PCS; 2020-02-25)
PROC: 5A09357 Assistance with Respiratory Ventilation, Less than 24 Consecutive Hours, Continuous Positive Airway Pressure (ICD-10-PCS; 2020-02-25)
PROC: 5A09357 Assistance with Respiratory Ventilation, Less than 24 Consecutive Hours, Continuous Positive Airway Pressure (ICD-10-PCS; 2020-02-26)
PROC: 5A0935A Assistance with Respiratory Ventilation, Less than 24 Consecutive Hours, High Flow/Velocity Cannula (ICD-10-PCS; 2020-02-26)
PROC: 5A09357 Assistance with Respiratory Ventilation, Less than 24 Consecutive Hours, Continuous Positive Airway Pressure (ICD-10-PCS; 2020-02-27)
PROC: 5A0935A Assistance with Respiratory Ventilation, Less than 24 Consecutive Hours, High Flow/Velocity Cannula (ICD-10-PCS; 2020-02-27)
PROC: 5A0935A Assistance with Respiratory Ventilation, Less than 24 Consecutive Hours, High Flow/Velocity Cannula (ICD-10-PCS; 2020-02-28)
PROC: 5A09357 Assistance with Respiratory Ventilation, Less than 24 Consecutive Hours, Continuous Positive Airway Pressure (ICD-10-PCS; 2020-02-28)
PROC: 5A0935A Assistance with Respiratory Ventilation, Less than 24 Consecutive Hours, High Flow/Velocity Cannula (ICD-10-PCS; 2020-02-29)
PROC: 5A0935A Assistance with Respiratory Ventilation, Less than 24 Consecutive Hours, High Flow/Velocity Cannula (ICD-10-PCS; 2020-03-01)
PROC: 5A09357 Assistance with Respiratory Ventilation, Less than 24 Consecutive Hours, Continuous Positive Airway Pressure (ICD-10-PCS; 2020-03-01)
PROC: 5A09357 Assistance with Respiratory Ventilation, Less than 24 Consecutive Hours, Continuous Positive Airway Pressure (ICD-10-PCS; 2020-03-02)
DX: U07.1 COVID-19 (principal); J12.89 Other viral pneumonia; J96.21 Acute and chronic respiratory failure with hypoxia; E43 Unspecified severe protein-calorie malnutrition; J15.9 Unspecified bacterial pneumonia; E87.0 Hyperosmolality and hypernatremia; R65.10 Systemic inflammatory response syndrome (SIRS) of non-infectious origin without acute organ dysfunction; J44.0 Chronic obstructive pulmonary disease with (acute) lower respiratory infection; D69.6 Thrombocytopenia, unspecified; M06.9 Rheumatoid arthritis, unspecified; G89.29 Other chronic pain; Z66 Do not resuscitate; E78.5 Hyperlipidemia, unspecified; F32.9 Major depressive disorder, single episode, unspecified; I10 Essential (primary) hypertension; I95.9 Hypotension, unspecified; S01.20XA Unspecified open wound of nose, initial encounter; X58.XXXA Exposure to other specified factors, initial encounter; M81.0 Age-related osteoporosis without current pathological fracture; Z79.899 Other long term (current) drug therapy; Z88.2 Allergy status to sulfonamides; Z68.21 Body mass index [BMI] 21.0-21.9, adult; Y93.89 Activity, other specified; Y92.89 Other specified places as the place of occurrence of the external cause; Y99.8 Other external cause status; Z23 Encounter for immunization